=== PATIENT | male | born 1990 | race Two or more races ===

== ENCOUNTER 2024-09-16 00:56 | Emergency (ER) | payer MEDICAID, OTHER ==
[~2024-09-16] VITALS: Ht 170.2 cm; Wt 132.8 kg
--- NOTE | 2024-09-16 01:48 | ED.PDOC ---
Back pain HPI HPI Comments C/C of lower right ankle pain s/p taking out the trash today. Pt states he wasnt being mindful, tripped, twisting ankle. Pt has brace in place to lower extremity. Able to ambulate with slow steady gait. +CSM. BP 160/112, HR 94. 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 NKDA. Denies numbness, weakness, headache, slurred speech, chest pain, difficulty breathing, shortness of breath. Chief Complaint: Lower Extremity Time Seen by MD: 01:03 Reviewed Notes: Nurses Notes, Medications, Allergies Allergies: Coded Allergies: NO KNOWN ALLERGIES (Unverified , 09/16/24) Home Meds Active Scripts Ibuprofen (Ibuprofen) 800 Mg Tab, 800 MG PO Q8HP PRN for 7 Days, #21 TAB Prov:OXANA BROUSSARD DEAN 09/16/24 Information Source: Patient Mode of Arrival: Ambulatory Constitutional: denies: chills, diaphoresis, fatigue, fever, malaise, sweats, weakness, others EENTM: denies: blurred vision, double vision, ear bleeding, ear discharge, ear drainage, ear pain, ear ringing, eye pain, eye redness, hearing loss, mouth pain, mouth swelling, nasal discharge, nose bleeding, nose congestion, nose pain, photophobia, tearing, throat pain, throat swelling, voice changes, others Respiratory: denies: cough, hemoptysis, orthopnea, SOB at rest, shortness of breath, SOB with excertion, stridor, wheezing, others Cardiovascular: denies: chest pain, dizzy spells, diaphoresis, Dyspnea on exertion, edema, irregular heart beat, left arm pain, lightheadedness, palpitations, PND, syncope, others Gastrointestinal: denies: abdomen distended, abdominal pain, blood streaked bowels, constipated, diarrhea, dysphagia, difficulty swallowing, hematemesis, melena, nausea, poor appetite, poor fluid intake, rectal bleeding, rectal pain, vomiting, others Genitourinary: denies: burning, dysuria, flank pain, frequency, hematuria, incontinence, penile discharge, penile sore, pain, testicle pain, testicle swelling, urgency, others Neurological: denies: dizziness, fainting, headache, left sided numbness, left sided weakness, numbness, paresthesia, pre-existing deficit, right sided num bness, right sided weakness, seizure, speech problems, tingling, tremors, weakness, others Musculoskeletal: reports: joint pain, joint swelling; denies: back pain, gout, muscle pain, muscle stiffness, neck pain, others Integumetry: denies: bruises, change in color, change in hair/nails, dryness, l aceration, lesions, lumps, rash, wounds, others Allergic/Immunocompromised: denies: Difficulty Healing, Frequent Infections, Hives, Itching, others Hematologic/Lymphatic: denies: anemia, blood clots, easy bleeding, easy bruising, swollen glands, others Endocrine: denies: excessive hunger, excessive sweating, excessive thirst, excessive urination, flushing, intolerance to cold, intolerance to heat, unexplained weight gain, unexplained weight loss, others Psychiatric: denies: anxiety, bipolar disorder, depression, hopeless, panic disorder, schizophrenia, sleepless, suicidal, others Physical Exam General Appearance: No Apparent Distress, Normal HEENT: Pharynx Normal Neck: Full Range of Motion, Non-Tender Respiratory: Lungs Clear, No Respiratory Distress, Normal Breath Sounds Cardiovascular: No Edema, No Murmur, Normal Peripheral Pulses, Regular Rate/Rhythm Breast Exam: Deferred Gastrointestinal: Non Tender, Soft Genitalia: Deferred Pelvic: Deferred Rectal: Deferred Extremities: Normal capillary refill, Normal inspection, Normal range of motion, Non-tender, No pedal edema Musculoskeletal : Location: Right Extremity Location: Ankle (MILD TO MODERATE EDEMA ABOUT THE ANKLE. SENSORY MOTION INTACT TRACE ECCHYMOSIS WITHOUT ANY ABRASIONS, LESIONS OR LACERATIONS. POSITIVE PEDAL PULSE) Apperance: Normal Neurologic: Alert, german tutor II-XII nml as Tested, No Motor Deficits, Normal Affect, Normal Mood, No Sensory Deficits Cerebellar Function: Normal Reflexes: Normal Skin: Dry, Normal Color, Warm Lymphatic: No Adenopathy Was a procedure done? Was a procedure done?: No Back Pain Differential Dx Differential Diagnosis: Fracture, Musculoskeletal Pain X-Ray, Labs, Meds, VS Vital Signs Date Time Temp Pulse Resp B/P (MAP) Pulse Ox O2 Delivery O2 Flow Rate FiO2 09/16/24 02:00 97.7 88 18 141/94 (110) 95 97.7 09/16/24 02:00 88 18 95 Room Air* 0 21 21 09/16/24 01:11 98.1 94 16 166/112 (130) 95 98.1 Current Medications Medications (Trade) Dose Ordered Sig/Jake Route Start Time Stop Time Status Last Admin Acetaminophen/ Hydrocodone Bitart ([place] 5/325MG Tab) 1 tab ONCE ONCE PO 09/16/24 02:45 09/16/24 02:46 DC 09/16/24 03:02 Ibuprofen (Motrin Tablet) 600 mg ONCE ONCE PO 09/16/24 02:45 09/16/24 02:46 DC 09/16/24 03:01 X-Ray, Labs, Meds, VS Comment RIGHT ANKLE X-RAY SHOWS NO ACUTE FRACTURES, DISLOCATIONS, SUBLUXATIONS OR OSSEOUS LESIONS, NOTED MILD SOFT TISSUE EDEMA. PATIENT GIVEN NORCO 5 MG P.O. AND IBUPROFEN 600 MG P.O. REPORTS IMPROVEMENT IN HIS PAIN AND FUNCTION REQUESTING DISCHARGE AT THIS TIME. PATIENT FITTED FOR ANKLE BRACE AND CRUTCH TRAINING. SCRIPT IBUPROFEN 800 MG T.I.D. PRN TO THE PHARMACY ON FILE. PATIENT TO TAKE MEDICATIONS PRESCRIBED SIDE EFFECTS DISCUSSED. ADVISED TO FOLLOW UP WITH HIS PCP IN 2-3 DAYS NECESSARY IF SYMPTOMS PERSIST CONSIDER FURTHER IMAGING SUCH MRI. ER RETURN PRECAUTIONS GIVEN PATIENT INDICATES UNDERSTANDING AND AGREES WITH DISCHARGE PLAN OF CARE. Time of 1ST Reevaluation: 01:48 Reevaluation 1ST: Unchanged Time of 2ND Reevaluation: 02:37 Reevaluation 2ND: Improved Patient Education/Counseling: Diagnosis, Treatment, Prognosis, Need For Follow Up Family Education/Counseling: No Family Present Departure 1 Departure Time of Disposition: 02:37 Impression: Primary Impression: Right ankle sprain Qualified Codes: S93.401A - Sprain of unspecified ligament of right ankle, initial encounter Disposition: 01 HOME / SELF CARE / HOMELESS Condition: Stable e-Prescriptions Ibuprofen (Ibuprofen) 800 Mg Tab 800 MG PO Q8HP PRN for 7 Days, #21 TAB Prov: OXANA BROUSSARD 09/16/24 Discharged With: Self Critical Care Note Critical Care Time?: No Stability Stability form required: OXANA Flor September 16, 2024 01:48
[2024-09-16 02:00] VITALS: BP 141/94; PULSE 88; RESP 18; TEMP 97.7; O2SAT 95
--- NOTE | 2024-09-16 02:34 | DVH ---
CLINICAL INDICATION: injury/pain TECHNIQUE: XY R ANKLE 3 VIEW Comparison: None FINDINGS/IMPRESSION: : There is no evidence of acute fracture or dislocation. Soft tissues are unremarkable.
[2024-09-16] MEDS ORDERED: IBUP-1456 PO (02:38)
[2024-09-16] MEDS: IBUPROFEN 600 MG TAB PO ONE (03:01)
[2024-09-16] MEDS: HYDROcodone-ACET 5/325MG TAB PO ONE (03:02)
== END 2024-09-16 02:53 | disposition home or self-care (01) ==
LOC: ER 00:56
DX: S93.491A Sprain of other ligament of right ankle, initial encounter (principal); X50.1XXA Overexertion from prolonged static or awkward postures, initial encounter; Y93.89 Activity, other specified; Y92.89 Other specified places as the place of occurrence of the external cause; Y99.8 Other external cause status
CPT/HCPCS: 73610

== ENCOUNTER 2024-10-01 10:38 | Emergency (ER) | payer MEDICAID ==
[~2024-10-01] VITALS: Ht 170.2 cm; Wt 127.5 kg
[2024-10-01] MEDS: cloNIDine HCL 0.1 MG TAB PO ONE (10:50)
--- NOTE | 2024-10-01 11:18 | ED.PDOC ---
History of Present Illness HPI Comments 34 year old male presents to the ED with a chief complaint of hypertension onset 3 days. Patient states for the past 3 days he has been experiencing high blood pressure as well as headache. Upon ED arrival BP was 170/100. He denies any PMHx as well as nausea, vomiting, diarrhea, abdominal pain, chest pain, shortness of breath. No other symptoms or modifying factors present at this time. Chief Complaint: High Blood Pressure Time Seen by MD: 11:05 Primary Care Provider: NONE Reviewed Notes: Medications, Allergies Allergies: Coded Allergies: NO KNOWN ALLERGIES (Unverified , 09/16/24) Home Meds Discontinued Scripts Ibuprofen (Ibuprofen) 800 Mg Tab, 800 MG PO Q8HP PRN for 7 Days, #21 TAB Prov:OXANA BROUSSARD SOFTWARE SYSTEMS ENGINEER 09/16/24 Information Source: Patient Mode of Arrival: Ambulatory Severity: Moderate Timing: Days Duration: Since onset Prehospital treatment: None Past Medical History PAST MEDICAL HISTORY: Denies Surgical History (Other): RT knee surgery Family History Family History: Reviewed,noncontributory to illness, No family hx of Cancer, No family hx of DM, No family hx of Heart kamar, No family hx of HTN, No family hx ofKidney kamar, No family hx of Liver kamar, No family hx of Lung kamar, No family hx of Stroke Social History Smoker: Non-Smoker Alcohol: Denies ETOH Use Drugs: Denies Drug Use Lives In: Home Constitutional: denies: chills, diaphoresis, fatigue, fever, malaise, sweats, weakness, others EENTM: denies: blurred vision, double vision, ear bleeding, ear discharge, ear drainage, ear pain, ear ringing, eye pain, eye redness, hearing loss, mouth pain, mouth swelling, nasal discharge, nose bleeding, nose congestion, nose pain, photophobia, tearing, throat pain, throat swelling, voice changes, others Respiratory: denies: cough, hemoptysis, orthopnea, SOB at rest, shortness of breath, SOB with excertion, stridor, wheezing, others Cardiovascular: reports: others (hypertension); denies: chest pain, dizzy spells, diaphoresis, Dyspnea on exertion, edema, irregular heart beat, left arm pain, lightheadedness, palpitations, PND, syncope Gastrointestinal: denies: abdomen distended, abdominal pain, blood streaked bowels, constipated, diarrhea, dysphagia, difficulty swallowing, hematemesis, melena, nausea, poor appetite, poor fluid intake, rectal bleeding, rectal pain, vomiting, others Genitourinary: denies: burning, dysuria, flank pain, frequency, hematuria, i ncontinence, penile discharge, penile sore, pain, testicle pain, testicle swelling, urgency, others Neurological: reports: headache; denies: dizziness, fainting, left sided numbness, left sided weakness, numbness, paresthesia, pre-existing deficit, right sided numbness, right sided weakness, seizure, speech problems, tingling, tremors, weakness, others Musculoskeletal: denies: back pain, gout, joint pain, joint swelling, muscle pain, muscle stiffness, neck pain, others Integumetry: denies: bruises, change in color, change in hair/nails, dryness, l aceration, lesions, lumps, rash, wounds, others Allergic/Immunocompromised: denies: Difficulty Healing, Frequent Infections, Hives, Itching, others Hematologic/Lymphatic: denies: anemia, blood clots, easy bleeding, easy bruising, swollen glands, others Endocrine: denies: excessive hunger, excessive sweating, excessive thirst, excessive urination, flushing, intolerance to cold, intolerance to heat, unexplained weight gain, unexplained weight loss, others Psychiatric: denies: anxiety, bipolar disorder, depression, hopeless, panic disorder, schizophrenia, sleepless, suicidal, others All Other Systems: Reviewed and Negative Physical Exam General Appearance: Moderate Distress, Normal HEENT: Normal ENT Inspection, Pharynx Normal, TMs Normal Neck: Full Range of Motion, Non-Tender, Normal, Normal Inspection Respiratory: Chest Non-Tender, Lungs Clear, No Accessory Muscle Use, No Respiratory Distress, Normal Breath Sounds Cardiovascular: No Edema, No JVD, No Murmur, No Gallop, Normal Peripheral Pulses, Regular Rate/Rhythm Breast Exam: Deferred Gastrointestinal: No Organomegaly, Non Tender, No Pulsatile Mass, Normal Bowel Sounds, Soft Genitalia: Deferred Pelvic: Deferred Rectal: Deferred Extremities: No calf tenderness, Normal capillary refill, Normal inspection, Normal range of motion, Non-tender, No pedal edema Musculoskeletal : Apperance: Normal Neurologic: Alert, spanish translator II-XII nml as Tested, No Motor Deficits, Normal Affect, Normal Mood, No Sensory Deficits Cerebellar Function: Normal Reflexes: Normal Skin: Dry, Normal Color, Warm Peripheral Pulses: 3+ Radial (R), 3+ Radial (L) Lymphatic: No Adenopathy Was a procedure done? Was a procedure done?: No Differential Dx Considerations may include: Hypertension X-Ray, Labs, Meds, VS Vital Signs Date Time Temp Pulse Resp B/P (MAP) Pulse Ox O2 Delivery O2 Flow Rate FiO2 10/01/24 12:06 98.1 78 16 166/95 (118) 94 98.1 10/01/24 12:06 78 16 94 Room Air 10/01/24 12:05 166/95 10/01/24 10:50 73 10/01/24 10:50 170/100 10/01/24 10:41 98.8 74 20 183/108 (133) 99 98.8 170/100 (123) Current Medications Medications (Trade) Dose Ordered Sig/Jake Route Start Time Stop Time Status Last Admin Clonidine HCl (Catapres Tablet) 0.2 mg ONCE ONCE PO 10/01/24 10:45 10/01/24 10:46 DC 10/01/24 10:50 Patient alert. Came in because of mild headache. Ambulating pain Vitals stable. No neurological deficits. No sign of TIA. No sign of any stroke. CT of the head was not done because physical exam was pristine. Blood pressure elevated pain Was given clonidine. Does not take any blood pressure medication. Was given prescription of lisinopril. Explained to the patient that his symptoms are due to hypertension. He has no vision problems. Was told to follow up with his primary care physician. Was told to come back if there is any problem. Time of 1ST Reevaluation: 11:35 Reevaluation 1ST: Unchanged Time of 2ND Reevaluation: 12:51 Reevaluation 2ND: Improved Patient Education/Counseling: Diagnosis, Treatment, Prognosis Family Education/Counseling: No Family Present Departure 1 Departure Time of Disposition: 12:53 Impression: Primary Impression: Hypertensive urgency Disposition: 01 HOME / SELF CARE / HOMELESS Condition: Good e-Prescriptions Lisinopril (Lisinopril) 20 Mg Tab 1 TAB PO DAILY for 10 Days, #10 TAB 5 Refills Prov: ANDREA CERON MD 10/01/24 Discharged With: Self Critical Care Note Critical Care Time?: No Stability Stability form required: No Heart Score Heart Score: Heart Score Response (Comments) Value History N/A 0 EKG N/A 0 Age N/A 0 Risk Factors N/A 0 Troponin N/A 0 Total 0 I personally scribed for ANDREA CERON MD ([email or web address]) on 10/01/24 at 11:18. Electronically submitted by Saumya Boyle ([email or web address]). ANDREA CERON MD October 01, 2024 11:18
[2024-10-01 12:06] VITALS: BP 166/95; PULSE 78; RESP 16; TEMP 98.1; O2SAT 94
[2024-10-01] MEDS ORDERED: LISI20TA56 PO (12:54)
--- NOTE | 2024-10-02 13:34 | ECG ---
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
== END 2024-10-01 13:10 | disposition home or self-care (01) ==
LOC: ER 10:38
DX: I16.0 Hypertensive urgency (principal); Z98.890 Other specified postprocedural states
CPT/HCPCS: 93005